=== PATIENT | male | born 1970 | race Caucasian/White ===

== ENCOUNTER 2017-04-22 15:13 | Emergency (ER) | payer MEDICARE, MEDICAID ==
[~2017-04-22] VITALS: Ht 188 cm; Wt 80.9 kg
[~2017-04-22 15:13] MED LIST: BUPR300T53 PO; CLON-527 PO; PRAZ1CAP5 PO; QUET25TA PO; VENL150C2 PO
[2017-04-22] MEDS ORDERED: dexamethasone sod phosphate 10mg/ml inj IM STA (15:48)
[2017-04-22] MEDS ORDERED: HYDROcodone/acetaminophen 10/325mg tab PO ONE (15:50)
[2017-04-22] MEDS ORDERED: ketorolac trometh inj. 60 MG/2 ML VIAL IM ONE (15:50)
[2017-04-22] MEDS ORDERED: diazepam 5mg tablet PO ONE (15:50)
[2017-04-22] MEDS ORDERED: morphine 5 MG/ML injection IM ONE (16:15)
[2017-04-22] MEDS ORDERED: ondansetron 4mg rapidly disintigrating tab PO ONE (16:50)
[2017-04-22] MEDS ORDERED: CYCL-1 PO (17:13)
== END 2017-04-22 17:18 | disposition home or self-care (01) ==
LOC: ER 15:14
DX: M48.061 Spinal stenosis, lumbar region without neurogenic claudication (principal); M62.830 Muscle spasm of back; G89.29 Other chronic pain; Z79.899 Other long term (current) drug therapy
CPT/HCPCS: 72100; 96372; 99284; J1100; J1885

== ENCOUNTER 2017-10-17 23:19 | Emergency (ER) | payer MEDICARE, MEDICAID ==
[~2017-10-17] VITALS: Ht 188 cm; Wt 78.8 kg
[~2017-10-17 23:19] MED LIST changes: +CYCL-1 PO
[2017-10-18 00:05] VITALS: BP 125/71
[2017-10-18] MEDS ORDERED: sulfamethoxazole/trimethoprim DS (800/160mg) tablet PO ONE (01:10)
== END 2017-10-18 01:19 | disposition home or self-care (01) ==
LOC: ER 23:19
DX: S61.210A Laceration without foreign body of right index finger without damage to nail, initial encounter (principal); G89.29 Other chronic pain; Z86.19 Personal history of other infectious and parasitic diseases; Z79.899 Other long term (current) drug therapy; W25.XXXA Contact with sharp glass, initial encounter; Y93.89 Activity, other specified; Y92.89 Other specified places as the place of occurrence of the external cause; Y99.8 Other external cause status
CPT/HCPCS: 12002; 99283

== ENCOUNTER 2017-10-30 17:45 | Emergency (ER) | payer MEDICARE, MEDICAID ==
[~2017-10-30] VITALS: Ht 188 cm; Wt 79.5 kg
[2017-10-30] MEDS ORDERED: ketorolac trometh inj. 60 MG/2 ML VIAL IM ONE (18:55)
[2017-10-30 19:12] VITALS: BP 112/87
== END 2017-10-30 19:13 | disposition home or self-care (01) ==
LOC: ER 17:45
DX: S61.210D Laceration without foreign body of right index finger without damage to nail, subsequent encounter (principal); M54.9 Dorsalgia, unspecified; Z79.899 Other long term (current) drug therapy; X58.XXXD Exposure to other specified factors, subsequent encounter
CPT/HCPCS: 96372; 99283; A6222; A6255; A6449; J1885

== ENCOUNTER 2017-12-02 20:58 | Emergency (ER) | payer MEDICARE, MEDICAID ==
[~2017-12-02] VITALS: Ht 188 cm; Wt 73.8 kg
[2017-12-02] MEDS ORDERED: DOXY100C43 PO (22:19)
[2017-12-02] MEDS ORDERED: ketorolac tromethamine 15mg/ml inj. IM ONE (22:25)
[2017-12-02 23:23] VITALS: BP 135/67
== END 2017-12-02 23:28 | disposition home or self-care (01) ==
LOC: ER 20:58
DX: M70.22 Olecranon bursitis, left elbow (principal); F12.90 Cannabis use, unspecified, uncomplicated; Z79.899 Other long term (current) drug therapy; Y93.89 Activity, other specified
CPT/HCPCS: 73080; 96372; 99284; J1885

== ENCOUNTER 2018-05-24 20:41 | Emergency (ER) | payer MEDICARE, MEDICAID ==
[~2018-05-24] VITALS: Ht 188 cm; Wt 64.4 kg
[2018-05-24 20:50] VITALS: BP 101/74
[2018-05-24] MEDS ORDERED: LIDOcaine 1% w/epiNEPHrine 1:200,000 30ml vial IM ONE (21:55)
[2018-05-24] MEDS ORDERED: sulfamethoxazole/trimethoprim DS (800/160mg) tablet PO ONE (21:55)
[2018-05-24] MEDS ORDERED: bacitracin 15gm ointment TP ONE (21:55)
--- NOTE | 2018-05-24 22:00 | NUR ---
DURING ABCESS DRAINAGE BY MD PATIENT WAS SCREAMING AND KICKING: HELD HIS HAND/ ARM AND REASSURED HIM PATIENT WOULD NOT ALLOW FULL DRAINAGE OF ABCESSES: WHITE MATERIAL OUT
[2018-05-24] MEDS ORDERED: SULF1TAB49 PO (22:30)
== END 2018-05-24 23:33 | disposition home or self-care (01) ==
LOC: ER 20:42
DX: L02.413 Cutaneous abscess of right upper limb (principal); L03.113 Cellulitis of right upper limb; G89.29 Other chronic pain; F12.90 Cannabis use, unspecified, uncomplicated; Z79.899 Other long term (current) drug therapy
CPT/HCPCS: 10061; 99284; J3490

== ENCOUNTER 2018-06-12 05:36 | Emergency (ER) | payer MEDICARE, MEDICAID ==
[~2018-06-12] VITALS: Ht 188 cm; Wt 85.1 kg
[2018-06-12] MEDS ORDERED: HYDR-4353 PO (06:11)
[2018-06-12 08:08] VITALS: BP 126/82
== END 2018-06-12 08:11 | disposition home or self-care (01) ==
LOC: ER 05:37
DX: S09.90XA Unspecified injury of head, initial encounter (principal); R51 Headache; I10 Essential (primary) hypertension; G89.29 Other chronic pain; F17.200 Nicotine dependence, unspecified, uncomplicated; F12.90 Cannabis use, unspecified, uncomplicated; F15.90 Other stimulant use, unspecified, uncomplicated; F11.90 Opioid use, unspecified, uncomplicated; Z79.899 Other long term (current) drug therapy; W22.8XXA Striking against or struck by other objects, initial encounter; Y93.89 Activity, other specified; Y92.89 Other specified places as the place of occurrence of the external cause; Y99.9 Unspecified external cause status
CPT/HCPCS: 70450; 99284

== ENCOUNTER 2018-07-13 19:38 | Emergency (ER) | payer MEDICARE, MEDICAID ==
[~2018-07-13] VITALS: Ht 190.5 cm; Wt 81.8 kg
[2018-07-13 19:42] VITALS: BP 117/80
--- NOTE | 2018-07-13 20:51 | NUR ---
pt in radiology
== END 2018-07-13 21:39 | disposition left against medical advice (07) ==
LOC: ER 19:39
DX: M54.6 Pain in thoracic spine (principal); R07.81 Pleurodynia; I10 Essential (primary) hypertension; G89.29 Other chronic pain; M54.9 Dorsalgia, unspecified; F12.90 Cannabis use, unspecified, uncomplicated; F15.90 Other stimulant use, unspecified, uncomplicated
CPT/HCPCS: 71100; 72070; 99283

== ENCOUNTER 2018-07-19 20:04 | Inpatient (IN) | payer MEDICARE, MEDICAID | END 2018-07-24 13:22 | disposition left against medical advice (07) | LOC: ED HOLD 07-20 02:11 → ER 20:04 → PCU 3S 07-20 08:55 | DX: I30.1 Infective pericarditis (principal); I26.90 Septic pulmonary embolism without acute cor pulmonale; J18.9 Pneumonia, unspecified organism; I76 Septic arterial embolism ==

== ENCOUNTER 2018-07-25 11:25 | Inpatient (IN) | payer MEDICARE, MEDICAID ==
[~2018-07-25] VITALS: Ht 188 cm; Wt 82.0 kg
[~2018-07-25 11:25] MED LIST changes: +ASEN5TAB SL; -CLON-527 PO; -QUET25TA PO
[2018-07-25 12:34] LABS: BASOPHILS # (AUTO) 0.1 X10'3 (0-0.2); BASOPHILS % (AUTO) 0.8 % (0-1); EOSINOPHILS # (AUTO) 0.7 X10'3 (0-0.9); EOSINOPHILS % (AUTO) 5.6 % (0-6); HEMATOCRIT 33.1 % (42.0-52.0); HEMOGLOBIN 10.9 g/dl (14.0-17.9); LYMPHOCYTES # (AUTO) 1.4 X10'3 (1.1-4.8); LYMPHOCYTES % (AUTO) 11.6 % (21-51); MEAN CORPUSCULAR HEMOGLOBIN 29.1 PG (27.0-31.0); MEAN CORPUSCULAR HGB CONC 32.9 g/dL (33.0-36.5); MEAN CORPUSCULAR VOLUME 88.5 FL (78-98); MEAN PLATELET VOLUME 6.4 FL (7.4-10.4); MONOCYTES # (AUTO) 1.2 X10'3 (0-0.9); MONOCYTES % (AUTO) 9.9 % (2-12); NEUTROPHILS # (AUTO) 8.8 X10'3 (1.8-7.7); NEUTROPHILS % (AUTO) 72.1 % (42-75); PLATELET COUNT 563 X10'3 (140-440); RED BLOOD COUNT 3.74 X10'6 (4.70-6.10); RED CELL DISTRIBUTION WIDTH 14.9 % (11.5-14.5); WHITE BLOOD COUNT 12.2 X10'3 (4.5-11.0)
[2018-07-25 12:48] LABS: INR 1.1 INR; PARTIAL THROMBOPLASTIN TIME 29 SECONDS (22-32)
[2018-07-25 12:58] LABS: ALANINE AMINOTRANSFERASE 39 U/L (12-78); ALBUMIN 2.1 G/DL (3.4-5.0); ALBUMIN/GLOBULIN RATIO 0.4 (1.1-1.5); ALKALINE PHOSPHATASE 349 IU/L (46-116); ANION GAP 6 (8-16); ASPARTATE AMINO TRANSFERASE 26 U/L (10-37); BILIRUBIN,TOTAL 0.2 MG/DL (0.1-1.0); BLOOD UREA NITROGEN 12 MG/DL (7-18); BUN/CREATININE RATIO 9.5 (5.4-32.0); CALCIUM 8.7 MG/DL (8.5-10.1); CHLORIDE 101 MMOL/L (99-107); CREATININE 1.26 MG/DL (0.60-1.10); GLUCOSE 178 MG/DL (70-104); POTASSIUM 4.2 MMOL/L (3.5-5.1); SODIUM 134 MMOL/L (135-145); TOTAL PROTEIN 7.4 G/DL (6.4-8.2); eGFR 62 ML/MIN
[2018-07-25] MEDS ORDERED: cefepime 2g/NS 100ml ADVANTAGE 100 ML IV ONE (13:54)
[2018-07-25] MEDS ORDERED: vancomycin/NS 1 GM ADD-VANTAGE 250 ML X 1 DOSE IV ONE (14:00)
--- NOTE | 2018-07-25 14:01 | NUR ---
Spoke with Jeanette PINZON regarding need for fluid administration for sepsis due to LA 2.1 and potential need for another set of blood cultures. ALBERTA stated that patient was not considered septic and did not need fluids per protocol, but to administer 1 L NS bolus. Jeanette PINZON stated that she would place order. Jeantete PINZON also stated that he could not need another set of blood cultures due to patient having being seen yesterday and gotten a set prior to first dose abx administration.
[2018-07-25] MEDS ORDERED: normal saline 1000ml 1,000 ML IVB ONE (14:18)
[2018-07-25] MEDS ORDERED: CYCL5TAB79 PO (14:28)
[2018-07-25 14:37] LABS: URINE AMPHETAMINE SCREEN NEGATIVE (Neg); URINE BARBITUATE SCREEN NEGATIVE (Neg); URINE BENZODIAZEPINES SCREEN NEGATIVE (Neg); URINE CANNABINOID SCREEN POSITIVE (Neg); URINE COCAINE SCREEN NEGATIVE (Neg); URINE METHADONE SCREEN NEGATIVE (Neg); URINE OPIATE SCREEN POSITIVE (Neg); URINE PHENCYCLIDINE SCREEN NEGATIVE (Neg)
[2018-07-25] MEDS ORDERED: potassium Cl 40MEQ/NS 500ml 500 ML IV PRN ×2 (15:10)
[2018-07-25] MEDS ORDERED: magnesium 4gm in 100ml NS 100 ML IV PRN (15:10)
[2018-07-25] MEDS ORDERED: magnesium 2GM in 50ml NS 50 ML IV PRN (15:10)
[2018-07-25] MEDS ORDERED: magnesium Cl slow-release 64mg tablet PO PRN (15:10)
[2018-07-25] MEDS ORDERED: acetaminophen 325mg tablet PO PRN ×2 (15:10)
[2018-07-25] MEDS ORDERED: ipratropium/albuterol 3ml nebule NEB PRN (15:10)
[2018-07-25] MEDS ORDERED: mag hydrox/Alum hydrox/simeth 30ml oral suspension PO PRN (15:10)
[2018-07-25] MEDS ORDERED: ondansetron/PF 4mg/2ml inj IV PRN (15:10)
[2018-07-25] MEDS ORDERED: potassium Cl 20 mEq SR tablet PO PRN ×2 (15:10)
[2018-07-25] MEDS ORDERED: ACET-812 PO (15:31)
[2018-07-25] MEDS ORDERED: cefepime 1GM/NS ADD-VANTAGE 100 ML IV SCH (16:00)
[2018-07-25] MEDS ORDERED: vancomycin inj 500 MG in normal saline 100ml IV soln 100 ML IV ONE (16:00)
[2018-07-25] MEDS: HYDROcodone/acetaminophen 5mg/325mg tablet PO PRN ×2 (17:13→22:25)
[2018-07-25] MEDS: docusate sod 100mg capsule PO SCH (18:36)
[2018-07-25] MEDS ORDERED: cyclobenzaprine 10mg tablet PO PRN (18:40)
--- NOTE | 2018-07-25 18:49 | NUR ---
MEAL TRAY DELIVERED, FOOD ALSO PROVIDED TO SPOUSE.
--- NOTE | 2018-07-25 19:18 | NUR ---
NURSE UNAVAIL TO TAKE REPORT
--- NOTE | 2018-07-25 19:30 | NUR ---
ROOM NOT CLEAN, WILL CALL WHEN READY.
[2018-07-25] MEDS: methylPREDNISolone sod succ/PF 40mg inj. IV SCH (19:33)
[2018-07-25] MEDS: buPROPion SR 150mg tablet PO SCH (19:33)
[2018-07-25] MEDS ORDERED: vancomycin/NS 1 GM ADD-VANTAGE 250 ML IV SCH (20:00)
--- NOTE | 2018-07-25 20:04 | NUR ---
Patient in room . I have received report from Dylan Corona and had the opportunity to ask questions and assume patient care.
--- NOTE | 2018-07-25 20:05 | NUR ---
RT PAGED FOR SCHEDULED BREATHING TX.
[2018-07-25] MEDS: ipratropium/albuterol 3ml nebule NEB SCH (20:50)
--- NOTE | 2018-07-25 20:51 | NUR ---
RT AT BEDSIDE FOR TREATMENT.
--- NOTE | 2018-07-25 20:52 | NUR ---
ATTEMPTED TO CALL SURGICAL REGARDING ROOM STATUS, NO ANWERANNEMARIE CALLED AND WILL INVESTIGATE. PT BECOMING UPSET ABOUT THE WAIT.
[2018-07-25] MEDS ORDERED: prazosin 1mg capsule PO SCH (21:00)
[2018-07-25 21:25] VITALS: BP 104/57
[2018-07-25] MEDS: cefepime 1GM/NS ADD-VANTAGE 100 ML IV SCH (23:15)
[2018-07-26] VITALS: BP 107/68
[2018-07-26] MEDS ORDERED: ASENAPINE PO SCH ×3 (00:15→21:00)
[2018-07-26] MEDS ORDERED: ASENAPINE PO ONE (00:45)
[2018-07-26] MEDS: ipratropium/albuterol 3ml nebule NEB SCH ×3 (03:10→14:52)
[2018-07-26] MEDS ORDERED: vancomycin inj 1,250 MG in NS 250ml IV soln IV SCH ×2 (04:00→12:00)
[2018-07-26 05:38] LABS: BASOPHILS % (AUTO) 0.3 % (0-1); EOSINOPHILS % (AUTO) 0.2 % (0-6); HEMATOCRIT 33.2 % (42.0-52.0); HEMOGLOBIN 10.9 g/dl (14.0-17.9); LYMPHOCYTES # (AUTO) 0.6 X10'3 (1.1-4.8); LYMPHOCYTES % (AUTO) 4.9 % (21-51); MEAN CORPUSCULAR HGB CONC 32.7 g/dL (33.0-36.5); MEAN CORPUSCULAR VOLUME 88.7 FL (78-98); MEAN PLATELET VOLUME 6.6 FL (7.4-10.4); MONOCYTES # (AUTO) 0.6 X10'3 (0-0.9); NEUTROPHILS # (AUTO) 11.4 X10'3 (1.8-7.7); NEUTROPHILS % (AUTO) 89.6 % (42-75); PLATELET COUNT 551 X10'3 (140-440); RED BLOOD COUNT 3.74 X10'6 (4.70-6.10); RED CELL DISTRIBUTION WIDTH 14.4 % (11.5-14.5); WHITE BLOOD COUNT 12.8 X10'3 (4.5-11.0)
[2018-07-26 05:39] LABS: ANION GAP 4 (8-16); BLOOD UREA NITROGEN 15 MG/DL (7-18); BUN/CREATININE RATIO 12.6 (5.4-32.0); CALCIUM 8.7 MG/DL (8.5-10.1); CHLORIDE 104 MMOL/L (99-107); CREATININE 1.19 MG/DL (0.60-1.10); GLUCOSE 220 MG/DL (70-104); MAGNESIUM 2.6 MG/DL (1.5-2.4); SODIUM 136 MMOL/L (135-145); TOTAL CARBON DIOXIDE 28.3 MMOL/L (24-32); eGFR 66 ML/MIN
--- NOTE | 2018-07-26 06:15 | NUR ---
Patient in room [facility] 340. I have received report from Claudio BUCK and had the opportunity to ask questions and assume patient care.
--- NOTE | 2018-07-26 06:47 | NUR ---
Problems reprioritized. Patient report given, questions answered & plan of care reviewed with HEBER Walker.
[2018-07-26 07:58] VITALS: BP 100/49
[2018-07-26] MEDS ORDERED: K and/or MAG REPLACEMENT MC SCH (08:00)
[2018-07-26] MEDS ORDERED: venlafaxine XR 75mg capsule (Q24H) PO SCH (08:00)
[2018-07-26] MEDS ORDERED: SAPHRIS 5 MG PO SCH (08:00)
[2018-07-26] MEDS: buPROPion SR 150mg tablet PO SCH (08:56)
[2018-07-26] MEDS: docusate sod 100mg capsule PO SCH (08:56)
[2018-07-26] MEDS: cefepime 1GM/NS ADD-VANTAGE 100 ML IV SCH ×2 (08:56→15:20)
[2018-07-26] MEDS: methylPREDNISolone sod succ/PF 40mg inj. IV SCH (08:57)
[2018-07-26 11:43] VITALS: BP 107/60
[2018-07-26] MEDS ORDERED: LEVO750T21 PO (15:10)
[2018-07-26] MEDS ORDERED: IPRA3AMP31 IH (15:11)
[2018-07-26] MEDS ORDERED: COMP1EAC88 (15:12)
--- NOTE | 2018-07-26 16:29 | NUR ---
Patient discharged with all belongings. to take pt home. IV taken out. Rx called in to [facility] in [place]. Home meds given back to pt from pharmacy. W/C to front lobby.
[2018-07-26] MEDS ORDERED: lactobacillus rhamnosus 10,000 MMU CELLS/CAPSULE PO SCH (20:00)
[2018-07-27] MEDS ORDERED: VANCOMYCIN LEVEL IV ONE (03:30)
== END 2018-07-26 16:26 | disposition home or self-care (01) | DRG 190 ==
LOC: ER 11:25 → SUR 3N 15:14
PROVIDERS: ADMIT Internal Medicine; ATTEND Internal Medicine
DX: J44.0 Chronic obstructive pulmonary disease with (acute) lower respiratory infection (principal); J18.1 Lobar pneumonia, unspecified organism; J91.8 Pleural effusion in other conditions classified elsewhere; J44.1 Chronic obstructive pulmonary disease with (acute) exacerbation; B18.2 Chronic viral hepatitis C; F31.9 Bipolar disorder, unspecified; F43.10 Post-traumatic stress disorder, unspecified; I10 Essential (primary) hypertension; F17.210 Nicotine dependence, cigarettes, uncomplicated; F12.10 Cannabis abuse, uncomplicated; G89.29 Other chronic pain; M54.9 Dorsalgia, unspecified; Z79.899 Other long term (current) drug therapy; Z87.01 Personal history of pneumonia (recurrent)
CPT/HCPCS: 36415; 71046; 80048; 80053; 80305; 83605; 83735; 85025; 85610; 85730; 87070; 94640; 94667; 94760; 96365; 99285; G0378; J0692; J2920; J3370; J7030

== ENCOUNTER 2018-10-31 08:03 | Day surgery (SDC) | payer MEDICARE, MEDICAID ==
[~2018-10-31] VITALS: Ht 188 cm; Wt 76.5 kg
[~2018-10-31 08:03] MED LIST changes: +ACET-812 PO; +COMP1EAC88; -CYCL-1 PO; +CYCL5TAB79 PO; +IPRA3AMP31 IH
[2018-10-31] MEDS ORDERED: normal saline 1000ml 1,000 ML IV PRN (08:35)
[2018-10-31 08:45] VITALS: BP 136/91
[2018-10-31] MEDS ORDERED: fentaNYL/PF 50MCG/1 ML 2ML syringe IV PRN (09:20)
[2018-10-31] MEDS ORDERED: heparin 1,000 units/ml 10ml inj ICATH ONE (09:20)
[2018-10-31] MEDS ORDERED: LIDOcaine 1%/PF 5ML 10 MG/ML VIAL SQ ONE (09:20)
[2018-10-31] MEDS ORDERED: midazolam 2 mg/2 ml injection IV PRN (09:20)
[2018-10-31 09:23] LABS: BASOPHILS # (AUTO) 0.2 X10'3 (0-0.2); BASOPHILS % (AUTO) 1.3 % (0-1); EOSINOPHILS # (AUTO) 0.3 X10'3 (0-0.9); EOSINOPHILS % (AUTO) 2.3 % (0-6); HEMATOCRIT 24.3 % (42.0-52.0); HEMOGLOBIN 7.8 g/dl (14.0-17.9); LYMPHOCYTES # (AUTO) 2.5 X10'3 (1.1-4.8); LYMPHOCYTES % (AUTO) 17.2 % (21-51); MEAN CORPUSCULAR HEMOGLOBIN 29.7 PG (27.0-31.0); MEAN CORPUSCULAR HGB CONC 32.1 g/dL (33.0-36.5); MEAN CORPUSCULAR VOLUME 92.5 FL (78-98); MEAN PLATELET VOLUME 6.9 FL (7.4-10.4); MONOCYTES % (AUTO) 7.3 % (2-12); NEUTROPHILS # (AUTO) 10.3 X10'3 (1.8-7.7); NEUTROPHILS % (AUTO) 71.9 % (42-75); PLATELET COUNT 282 X10'3 (140-440); RED BLOOD COUNT 2.63 X10'6 (4.70-6.10); RED CELL DISTRIBUTION WIDTH 18.4 % (11.5-14.5); WHITE BLOOD COUNT 14.3 X10'3 (4.5-11.0)
[2018-10-31] MEDS ORDERED: LIDOcaine 1%/PF 5ML 10 MG/ML VIAL ONE (09:32)
[2018-10-31] MEDS ORDERED: heparin 1,000unit/ml 10ml vial 10 ML ONE (09:32)
[2018-10-31 09:33] LABS: ALBUMIN 3.2 G/DL (3.4-5.0); ANION GAP 13 (8-16); BLOOD UREA NITROGEN 55 MG/DL (7-18); CALCIUM 8.3 MG/DL (8.5-10.1); CHLORIDE 104 MMOL/L (99-107); GLUCOSE 83 MG/DL (70-104); POTASSIUM 5.8 MMOL/L (3.5-5.1); SODIUM 139 MMOL/L (135-145); TOTAL CARBON DIOXIDE 22.3 MMOL/L (24-32)
[2018-10-31] MEDS ORDERED: fentaNYL/PF 50MCG/1 ML 2ML syringe ONE ×2 (09:33→09:52)
[2018-10-31] MEDS ORDERED: midazolam 2 mg/2 ml injection ONE (09:33)
[2018-10-31] MEDS ORDERED: AMLO-314 PO (09:44)
[2018-10-31] MEDS ORDERED: ACET-1017 PO (09:44)
[2018-10-31] MEDS ORDERED: SEVE800T8 PO (09:44)
[2018-10-31] MEDS ORDERED: PHO667C PO (09:44)
[2018-10-31] MEDS ORDERED: FOLI0.8T7 PO (09:44)
[2018-10-31 09:45] LABS: CREATININE 12.01 MG/DL (0.60-1.10); eGFR 5 ML/MIN
[2018-10-31 09:46] LABS: BUN/CREATININE RATIO 4.6 (5.4-32.0)
[2018-10-31 10:19] VITALS: BP 137/98
[2018-10-31 10:36] VITALS: BP 157/98
[2018-10-31 10:51] VITALS: BP 177/102
[2018-10-31 11:06] VITALS: BP 172/109
[2018-10-31 11:21] VITALS: BP 164/100
== END 2018-10-31 11:25 | disposition home or self-care (01) ==
LOC: SSTAY O 08:03
PROVIDERS: ATTEND Radiology Diagnostic Radiology
DX: I12.0 Hypertensive chronic kidney disease with stage 5 chronic kidney disease or end stage renal disease (principal); N18.6 End stage renal disease; B18.2 Chronic viral hepatitis C; J44.9 Chronic obstructive pulmonary disease, unspecified; F31.9 Bipolar disorder, unspecified; Z87.01 Personal history of pneumonia (recurrent); F43.10 Post-traumatic stress disorder, unspecified; Z79.899 Other long term (current) drug therapy
CPT/HCPCS: 36415; 36558; 76937; 77001; 80048; 85025; 85610; 99152; 99153; C1750; C1894; J1644; J2250; J3010; J7030; A9270

== ENCOUNTER 2019-03-08 17:15 | Inpatient (IN) | payer MEDICARE, MEDICAID ==
[~2019-03-08] VITALS: Ht 190.5 cm; Wt 72.5 kg
[~2019-03-08 17:15] MED LIST changes: +ACET-1017 PO; -ACET-812 PO; +AMLO-314 PO; -COMP1EAC88; +FOLI0.8T7 PO; +PHO667C PO; +SEVE800T8 PO
[2019-03-08] MEDS ORDERED: CefTRIAXone 2gm/D5W 50ml 50 ML IV ONE (17:40)
[2019-03-08] MEDS ORDERED: ondansetron/PF 4mg/2ml inj IV ONE ×2 (17:40→19:20)
[2019-03-08 17:59] LABS: CLARITY,URINE CLEAR (Clear); COLOR,URINE YELLOW (Yellow); GLUCOSE, URINE NEGATIVE (Neg); KETONES,URINE NEGATIVE (Neg); LEUKOCYTE ESTERASE ,URINE NEGATIVE (Neg); NITRITES, URINE NEGATIVE (Neg); OCCULT BLOOD,URINE LARGE (Neg); PROTEIN,URINE 100 mg/dl (Neg); UROBILINOGEN,URINE 0.2 E.U/dL (0.2-1.0)
[2019-03-08 18:04] LABS: UA COLLECTION TYPE CLN CATCH MIDSTREAM
[2019-03-08 18:05] LABS: AMORPHOUS URATES 1+; BACTERIA,URINE FEW /HPF (Neg); COARSE GRANULAR CAST 0-3 /LPF (NEGATIVE); MUCUS STRANDS FEW /LPF (Neg); RBC,URINE 0-2 /HPF (0-2); SQUAMOUS EPITHELIAL CELL,UR FEW /LPF (FEW); WBC,URINE 0-4 /HPF (0-4)
[2019-03-08 18:11] LABS: BASOPHILS # (AUTO) 0.1 X10'3 (0-0.2); BASOPHILS % (AUTO) 0.3 % (0-1); EOSINOPHILS % (AUTO) 0.1 % (0-6); HEMATOCRIT 34.2 % (42.0-52.0); HEMOGLOBIN 11.6 g/dl (14.0-17.9); LYMPHOCYTES # (AUTO) 0.7 X10'3 (1.1-4.8); LYMPHOCYTES % (AUTO) 3.8 % (21-51); MEAN CORPUSCULAR HEMOGLOBIN 31.4 PG (27.0-31.0); MEAN CORPUSCULAR HGB CONC 33.9 g/dL (33.0-36.5); MEAN CORPUSCULAR VOLUME 92.4 FL (78-98); MEAN PLATELET VOLUME 7.5 FL (7.4-10.4); MONOCYTES # (AUTO) 0.9 X10'3 (0-0.9); MONOCYTES % (AUTO) 4.5 % (2-12); NEUTROPHILS # (AUTO) 17.8 X10'3 (1.8-7.7); NEUTROPHILS % (AUTO) 91.3 % (42-75); PLATELET COUNT 170 X10'3 (140-440); RED CELL DISTRIBUTION WIDTH 13.6 % (11.5-14.5); WHITE BLOOD COUNT 19.5 X10'3 (4.5-11.0)
[2019-03-08 18:14] LABS: PARTIAL THROMBOPLASTIN TIME 34 SECONDS (22-32)
[2019-03-08 18:16] LABS: ALANINE AMINOTRANSFERASE 35 U/L (12-78); ALBUMIN 3.4 G/DL (3.4-5.0); ALBUMIN/GLOBULIN RATIO 0.8 (1.1-1.5); ALKALINE PHOSPHATASE 82 IU/L (46-116); ANION GAP 20 (8-16); ASPARTATE AMINO TRANSFERASE 39 U/L (10-37); BILIRUBIN,TOTAL 0.5 MG/DL (0.1-1.0); BLOOD UREA NITROGEN 68 MG/DL (7-18); BUN/CREATININE RATIO 7.1 (5.4-32.0); CALCIUM 8.9 MG/DL (8.5-10.1); CHLORIDE 95 MMOL/L (99-107); CREATININE 9.57 MG/DL (0.60-1.10); GLUCOSE 127 MG/DL (70-104); POTASSIUM 4.6 MMOL/L (3.5-5.1); SODIUM 132 MMOL/L (135-145); TOTAL CARBON DIOXIDE 16.6 MMOL/L (24-32); TOTAL PROTEIN 7.8 G/DL (6.4-8.2); eGFR 6 ML/MIN
[2019-03-08 18:24] LABS: TROPONIN I < 0.04 NG/ML (0.0-0.05)
[2019-03-08] MEDS ORDERED: morphine 4 MG/ML inj SYRINge IV ONE (19:20)
[2019-03-08] MEDS ORDERED: PANT-47 PO (19:32)
[2019-03-08] MEDS ORDERED: TIZA2TAB5 PO (19:32)
[2019-03-08] MEDS ORDERED: ondansetron/PF 4mg/2ml inj IV PRN (20:30)
[2019-03-08] MEDS ORDERED: vancomycin/NS 1 GM ADD-VANTAGE 250 ML IV ONE (20:30)
[2019-03-08] MEDS ORDERED: acetaminophen 650mg rectal suppository RC PRN (20:30)
[2019-03-08] MEDS ORDERED: acetaminophen 325mg tablet PO PRN ×2 (20:30)
[2019-03-08 21:45] VITALS: BP 114/68
[2019-03-08] MEDS: piperacillin/tazo 3.375gm/50ml 50 ML IV SCH (23:58)
--- NOTE | 2019-03-09 06:23 | NUR ---
Patient in room [facility] 360. I have received report from HEBER WATTS and had the opportunity to ask questions and assume patient care.
[2019-03-09 06:25] LABS: BASOPHILS % (AUTO) 0.2 % (0-1); EOSINOPHILS % (AUTO) 0.4 % (0-6); HEMATOCRIT 34.2 % (42.0-52.0); HEMOGLOBIN 11.5 g/dl (14.0-17.9); LYMPHOCYTES # (AUTO) 0.8 X10'3 (1.1-4.8); LYMPHOCYTES % (AUTO) 6.2 % (21-51); MEAN CORPUSCULAR HEMOGLOBIN 31.5 PG (27.0-31.0); MEAN CORPUSCULAR HGB CONC 33.7 g/dL (33.0-36.5); MEAN CORPUSCULAR VOLUME 93.5 FL (78-98); MEAN PLATELET VOLUME 8.1 FL (7.4-10.4); MONOCYTES # (AUTO) 1.2 X10'3 (0-0.9); MONOCYTES % (AUTO) 8.8 % (2-12); NEUTROPHILS # (AUTO) 11.1 X10'3 (1.8-7.7); NEUTROPHILS % (AUTO) 84.4 % (42-75); PLATELET COUNT 152 X10'3 (140-440); RED BLOOD COUNT 3.66 X10'6 (4.70-6.10); RED CELL DISTRIBUTION WIDTH 13.7 % (11.5-14.5); WHITE BLOOD COUNT 13.1 X10'3 (4.5-11.0)
--- NOTE | 2019-03-09 06:26 | NUR ---
Verbal report given to Jude BUCK
[2019-03-09 06:40] LABS: ALANINE AMINOTRANSFERASE 108 U/L (12-78); ALBUMIN 2.9 G/DL (3.4-5.0); ALBUMIN/GLOBULIN RATIO 0.7 (1.1-1.5); ALKALINE PHOSPHATASE 144 IU/L (46-116); ANION GAP 14 (8-16); ASPARTATE AMINO TRANSFERASE 164 U/L (10-37); BILIRUBIN,TOTAL 0.3 MG/DL (0.1-1.0); BLOOD UREA NITROGEN 76 MG/DL (7-18); BUN/CREATININE RATIO 7.4 (5.4-32.0); CALCIUM 8.8 MG/DL (8.5-10.1); CHLORIDE 98 MMOL/L (99-107); CREATININE 10.32 MG/DL (0.60-1.10); GLUCOSE 98 MG/DL (70-104); MAGNESIUM 2.3 MG/DL (1.5-2.4); PHOSPHORUS 7.9 MG/DL (2.3-4.5); POTASSIUM 4.7 MMOL/L (3.5-5.1); SODIUM 133 MMOL/L (135-145); TOTAL PROTEIN 7.1 G/DL (6.4-8.2); eGFR 5 ML/MIN
[2019-03-09 07:00] VITALS: BP 124/80
[2019-03-09] MEDS: piperacillin/tazo 3.375gm/50ml 50 ML IV SCH ×3 (07:33→19:54)
[2019-03-09] MEDS ORDERED: IPRA3AMP31 IH (07:37)
[2019-03-09] MEDS ORDERED: pneumococcal 23-VAL P-sac vacc 25 mcg/0.5ml vial IMVAC ONE (10:00)
[2019-03-09] MEDS ORDERED: FLU VACC QS2019-20 36MOS UP/PF 60 MCG/0.5 ML SYRINGE IMVAC ONE (10:00)
[2019-03-09 11:04] VITALS: BP 103/65
[2019-03-09] MEDS: HYDROcodone/acetaminophen 5mg/325mg tablet PO PRN ×3 (11:22→19:55)
[2019-03-09] MEDS ORDERED: vancomycin/NS 1 GM ADD-VANTAGE 250 ML IV PRN (13:15)
[2019-03-09] MEDS ORDERED: vancomycin/NS 1 GM ADD-VANTAGE 250 ML IV ONE (13:15)
--- NOTE | 2019-03-09 18:23 | NUR ---
Problems reprioritized. Patient report given, questions answered & plan of care reviewed with jorge luis baum.
[2019-03-09 18:50] VITALS: BP 114/62
[2019-03-09 19:52] VITALS: BP 114/62
[2019-03-09] MEDS: lactobacillus rhamnosus 10,000 MMU CELLS/CAPSULE PO SCH (19:55)
[2019-03-09] MEDS ORDERED: ipratropium/albuterol 3ml nebule IH PRN (21:35)
[2019-03-09] MEDS: ASENAPINE MALEATE 2.5 MG SL SCH (22:33)
[2019-03-09] MEDS ORDERED: tizanidine 4mg tablet PO PRN (23:20)
[2019-03-10] MEDS: VANCOMYCIN LEVEL IV SCH (03:54)
[2019-03-10 06:09] LABS: EOSINOPHILS # (AUTO) 0.2 X10'3 (0-0.9); EOSINOPHILS % (AUTO) 2.6 % (0-6); HEMOGLOBIN 11.7 g/dl (14.0-17.9); LYMPHOCYTES # (AUTO) 1.2 X10'3 (1.1-4.8); MEAN PLATELET VOLUME 8.1 FL (7.4-10.4); MONOCYTES # (AUTO) 1.2 X10'3 (0-0.9)
[2019-03-10 06:11] LABS: BASOPHILS # (AUTO) 0.1 X10'3 (0-0.2); BASOPHILS % (AUTO) 0.8 % (0-1); HEMATOCRIT 34.1 % (42.0-52.0); LYMPHOCYTES % (AUTO) 14.2 % (21-51); MEAN CORPUSCULAR HEMOGLOBIN 32.1 PG (27.0-31.0); MEAN CORPUSCULAR HGB CONC 34.3 g/dL (33.0-36.5); MEAN CORPUSCULAR VOLUME 93.4 FL (78-98); MONOCYTES % (AUTO) 14.3 % (2-12); NEUTROPHILS # (AUTO) 5.8 X10'3 (1.8-7.7); NEUTROPHILS % (AUTO) 68.1 % (42-75); PLATELET COUNT 156 X10'3 (140-440); RED BLOOD COUNT 3.65 X10'6 (4.70-6.10); RED CELL DISTRIBUTION WIDTH 13.7 % (11.5-14.5); WHITE BLOOD COUNT 8.5 X10'3 (4.5-11.0)
[2019-03-10 06:13] LABS: ALANINE AMINOTRANSFERASE 236 U/L (12-78); ALBUMIN 2.8 G/DL (3.4-5.0); ALBUMIN/GLOBULIN RATIO 0.7 (1.1-1.5); ALKALINE PHOSPHATASE 427 IU/L (46-116); ANION GAP 16 (8-16); ASPARTATE AMINO TRANSFERASE 281 U/L (10-37); BILIRUBIN,TOTAL 0.3 MG/DL (0.1-1.0); BLOOD UREA NITROGEN 79 MG/DL (7-18); BUN/CREATININE RATIO 7.3 (5.4-32.0); CALCIUM 8.7 MG/DL (8.5-10.1); CHLORIDE 100 MMOL/L (99-107); CREATININE 10.84 MG/DL (0.60-1.10); GLUCOSE 90 MG/DL (70-104); MAGNESIUM 2.4 MG/DL (1.5-2.4); PHOSPHORUS 6.5 MG/DL (2.3-4.5); POTASSIUM 4.7 MMOL/L (3.5-5.1); SODIUM 136 MMOL/L (135-145); TOTAL CARBON DIOXIDE 20.4 MMOL/L (24-32); TOTAL PROTEIN 7.1 G/DL (6.4-8.2); VANCOMYCIN,RANDOM 23.6 UG/ML; eGFR 5 ML/MIN
--- NOTE | 2019-03-10 06:36 | NUR ---
Patient in room [facility] 360. I have received report from Clem BUCK and had the opportunity to ask questions and assume patient care.
[2019-03-10 07:00] VITALS: BP 114/70
[2019-03-10] MEDS: piperacillin/tazo 3.375gm/50ml 50 ML IV SCH ×2 (07:36→19:31)
[2019-03-10] MEDS: amLODIPine 5mg tablet PO SCH (07:38)
[2019-03-10] MEDS: pantoprazole 40mg Tablet.DR PO SCH ×2 (07:38→19:31)
[2019-03-10] MEDS: calcium acetate 667mg (PhosLO) capsule PO SCH ×3 (07:38→18:00)
[2019-03-10] MEDS: lactobacillus rhamnosus 10,000 MMU CELLS/CAPSULE PO SCH ×2 (07:39→19:31)
[2019-03-10] MEDS: folic acid/vitamin B complex w/vitamin C 0.8mg tablet PO SCH (07:39)
[2019-03-10] MEDS: sevelamer carbonate 800mg tablet PO SCH ×3 (07:39→21:32)
[2019-03-10] MEDS: venlafaxine XR 75mg capsule (Q24H) PO SCH (07:40)
[2019-03-10] MEDS: buPROPion SR 150mg tablet PO SCH ×2 (07:40→19:31)
[2019-03-10] MEDS ORDERED: heparin 1,000unit/ml 10ml vial 10 ML IV ONE (08:00)
[2019-03-10] MEDS ORDERED: heparin 1,000 units/ml 10ml inj HE ONE ×2 (08:00)
[2019-03-10] MEDS ORDERED: normal saline 1000ml 250 ML IV PRN (08:00)
[2019-03-10] MEDS ORDERED: FLU VACC QS2019-20 36MOS UP/PF 60 MCG/0.5 ML SYRINGE IMVAC ONE (10:15)
[2019-03-10] MEDS ORDERED: pneumococcal 23-VAL P-sac vacc 25 mcg/0.5ml vial IMVAC ONE (10:15)
[2019-03-10 11:00] VITALS: BP 120/79
--- NOTE | 2019-03-10 11:00 | NUR ---
AT 1100 V/S IS CURRENTLY RECEIVIING DIALYSIS CHARTED BP AND HR ONLY. DIALYSIS NURSE IS MONITORING
[2019-03-10] MEDS: HYDROcodone/acetaminophen 5mg/325mg tablet PO PRN (15:28)
--- NOTE | 2019-03-10 18:10 | NUR ---
Patient in room [facility] 360. I have received report from Isabella BUCK and had the opportunity to ask questions and assume patient care.
--- NOTE | 2019-03-10 18:29 | NUR ---
Problems reprioritized. Patient report given, questions answered & plan of care reviewed with Mariano BUCK.
[2019-03-10 20:00] VITALS: BP 113/72
[2019-03-10] MEDS ORDERED: prazosin 1mg capsule PO SCH (21:00)
[2019-03-10] MEDS: ASENAPINE MALEATE 2.5 MG SL SCH (21:32)
[2019-03-11] VITALS: BP 113/69
[2019-03-11] MEDS: VANCOMYCIN LEVEL IV SCH (03:00)
[2019-03-11 05:25] LABS: BASOPHILS # (AUTO) 0.1 X10'3 (0-0.2); EOSINOPHILS # (AUTO) 0.1 X10'3 (0-0.9); EOSINOPHILS % (AUTO) 1.4 % (0-6); HEMOGLOBIN 12.4 g/dl (14.0-17.9); LYMPHOCYTES # (AUTO) 1.2 X10'3 (1.1-4.8); LYMPHOCYTES % (AUTO) 13.4 % (21-51); MEAN CORPUSCULAR HGB CONC 34.5 g/dL (33.0-36.5); MEAN CORPUSCULAR VOLUME 92.6 FL (78-98); MEAN PLATELET VOLUME 7.7 FL (7.4-10.4); MONOCYTES # (AUTO) 1.1 X10'3 (0-0.9); MONOCYTES % (AUTO) 12.8 % (2-12); NEUTROPHILS # (AUTO) 6.4 X10'3 (1.8-7.7); NEUTROPHILS % (AUTO) 71.4 % (42-75); PLATELET COUNT 195 X10'3 (140-440); RED BLOOD COUNT 3.89 X10'6 (4.70-6.10); RED CELL DISTRIBUTION WIDTH 13.8 % (11.5-14.5)
[2019-03-11 05:48] LABS: ALANINE AMINOTRANSFERASE 177 U/L (12-78); ALBUMIN 3.1 G/DL (3.4-5.0); ALBUMIN/GLOBULIN RATIO 0.6 (1.1-1.5); ALKALINE PHOSPHATASE 360 IU/L (46-116); ANION GAP 15 (8-16); ASPARTATE AMINO TRANSFERASE 75 U/L (10-37); BILIRUBIN,TOTAL 0.3 MG/DL (0.1-1.0); BLOOD UREA NITROGEN 51 MG/DL (7-18); BUN/CREATININE RATIO 5.8 (5.4-32.0); CALCIUM 9.2 MG/DL (8.5-10.1); CHLORIDE 99 MMOL/L (99-107); CREATININE 8.73 MG/DL (0.60-1.10); GLUCOSE 185 MG/DL (70-104); MAGNESIUM 2.5 MG/DL (1.5-2.4); PHOSPHORUS 6.7 MG/DL (2.3-4.5); POTASSIUM 4.3 MMOL/L (3.5-5.1); SODIUM 136 MMOL/L (135-145); TOTAL CARBON DIOXIDE 22.5 MMOL/L (24-32); TOTAL PROTEIN 7.9 G/DL (6.4-8.2); VANCOMYCIN,RANDOM 17.2 UG/ML; eGFR 7 ML/MIN
--- NOTE | 2019-03-11 06:10 | NUR ---
Problems reprioritized. Patient report given, questions answered & plan of care reviewed with Elda BUCK.
--- NOTE | 2019-03-11 06:11 | NUR ---
Patient in room [facility] 360. I have received report from HEBER Quintana and had the opportunity to ask questions and assume patient care.
[2019-03-11 07:00] VITALS: BP 124/81
[2019-03-11] MEDS: lactobacillus rhamnosus 10,000 MMU CELLS/CAPSULE PO SCH (09:03)
[2019-03-11] MEDS: piperacillin/tazo 3.375gm/50ml 50 ML IV SCH (09:03)
[2019-03-11] MEDS: sevelamer carbonate 800mg tablet PO SCH ×2 (09:04→14:35)
[2019-03-11] MEDS: folic acid/vitamin B complex w/vitamin C 0.8mg tablet PO SCH (09:04)
[2019-03-11] MEDS: calcium acetate 667mg (PhosLO) capsule PO SCH ×2 (09:04→14:35)
[2019-03-11] MEDS: buPROPion SR 150mg tablet PO SCH (09:04)
[2019-03-11] MEDS: amLODIPine 5mg tablet PO SCH (09:04)
[2019-03-11] MEDS: pantoprazole 40mg Tablet.DR PO SCH (09:04)
[2019-03-11] MEDS: venlafaxine XR 75mg capsule (Q24H) PO SCH (09:04)
[2019-03-11 11:00] VITALS: BP 141/84
[2019-03-11] MEDS: HYDROcodone/acetaminophen 5mg/325mg tablet PO PRN (11:54)
--- NOTE | 2019-03-11 14:48 | NUR ---
Patient is stating that if Dr. Roland doesn't come and discharge him by 1500 then he is leaving AMA. Dr. Roland was called regarding this earlier but have not heard back from him yet. Patient requested his PIV be removed. Patient educated that we do not remove PIVs until patient is leaving due to safety concerns. Patient stated he didn't care and that he wants it out now. PIV removed with cannula intact.
--- NOTE | 2019-03-11 14:58 | NUR ---
Spoke with Dr. Roland and he stated that the patient should not leave AMA due to the danger in having positive blood cultures. Patient may need to have TDC removed because of this. This was discussed with the patient and he became very upset stating he would try and wait for Dr. Roland to come and talk to him but that he is still planning to leave today regardless.
[2019-03-11] MEDS ORDERED: LIDOcaine 1% (10mg/ml) 2ml vial SQ STA (15:10)
[2019-03-11] MEDS ORDERED: vancomycin/NS 1 GM ADD-VANTAGE 250 ML IV STA (15:10)
[2019-03-11] MEDS ORDERED: LIDOcaine 1%/PF 5ML 10 MG/ML VIAL SQ STA (15:41)
--- NOTE | 2019-03-11 16:00 | NUR ---
Patient decided to stay for another dose of Vanco ordered by Dr. Roland and the TDC removed by Dr. Bloom.
--- NOTE | 2019-03-11 17:27 | NUR ---
Patient discharged home via family and left the unit via ambulation and refused to wait for a staff member to walk down with him. PIV removed with cannula intact. Patient was given discharge instructions with time for question and answers. Patient and family stated understanding. Home medications were retrieved from pharm and given to patient to take home. TDC removal site bleeding was well controlled. Patient was encouraged to follow up with [facility] on Saturday and have them draw repeat blood cultures. Patient stated an understanding of this. patient was alert, oriented and in no apparent distress at time of discharge. All belongings left with patient.
== END 2019-03-11 17:25 | disposition home or self-care (01) | DRG 314 ==
LOC: ER 17:16 → ED HOLD 20:39 → SUR 3N 21:34
PROVIDERS: ADMIT Internal Medicine Critical Care Medicine; ATTEND Internal Medicine Critical Care Medicine
PROC: 5A1D70Z Performance of Urinary Filtration, Intermittent, Less than 6 Hours Per Day (ICD-10-PCS; principal; 2019-03-10)
PROC: 3E0234Z Introduction of Serum, Toxoid and Vaccine into Muscle, Percutaneous Approach (ICD-10-PCS; 2019-03-10)
PROC: 3E02340 Introduction of Influenza Vaccine into Muscle, Percutaneous Approach (ICD-10-PCS; 2019-03-10)
PROC: 05PYX3Z Removal of Infusion Device from Upper Vein, External Approach (ICD-10-PCS; 2019-03-11)
DX: T80.211A Bloodstream infection due to central venous catheter, initial encounter (principal); A41.9 Sepsis, unspecified organism; N18.6 End stage renal disease; I12.0 Hypertensive chronic kidney disease with stage 5 chronic kidney disease or end stage renal disease; Z99.2 Dependence on renal dialysis; I77.6 Arteritis, unspecified; F17.200 Nicotine dependence, unspecified, uncomplicated; Z87.01 Personal history of pneumonia (recurrent); F12.90 Cannabis use, unspecified, uncomplicated; G89.29 Other chronic pain; M54.9 Dorsalgia, unspecified; B95.62 Methicillin resistant Staphylococcus aureus infection as the cause of diseases classified elsewhere; B19.20 Unspecified viral hepatitis C without hepatic coma; Y83.8 Other surgical procedures as the cause of abnormal reaction of the patient, or of later complication, without mention of misadventure at the time of the procedure; Y92.89 Other specified places as the place of occurrence of the external cause; Z23 Encounter for immunization
CPT/HCPCS: 36415; 36589; 71045; 80053; 80202; 81001; 83605; 83735; 83880; 84100; 84145; 84484; 85025; 85610; 85730; 87040; 87077; 87081; 87186; 87502; 87503; 90732; 93005; 93306; 94760; 96365; 96375; 96376; 99285; G0257; G0378; J0696; J1644; J2270; J2405; J2543; J3370; Q2037

== ENCOUNTER 2019-03-16 11:02 | Day surgery (SDC) | payer MEDICARE, MEDICAID ==
[~2019-03-16] VITALS: Ht 190.5 cm; Wt 80.6 kg
[~2019-03-16 11:02] MED LIST changes: -CYCL5TAB79 PO; +PANT-47 PO; +TIZA2TAB5 PO
[2019-03-16 11:15] VITALS: BP 122/46
[2019-03-16] MEDS ORDERED: normal saline 1000ml 1,000 ML IV SCH (11:40)
[2019-03-16 11:46] LABS: BASOPHILS # (AUTO) 0.1 X10'3 (0-0.2); BASOPHILS % (AUTO) 1.5 % (0-1); EOSINOPHILS # (AUTO) 0.2 X10'3 (0-0.9); EOSINOPHILS % (AUTO) 2.5 % (0-6); HEMATOCRIT 28.8 % (42.0-52.0); HEMOGLOBIN 9.9 g/dl (14.0-17.9); LYMPHOCYTES # (AUTO) 2.1 X10'3 (1.1-4.8); LYMPHOCYTES % (AUTO) 26.8 % (21-51); MEAN CORPUSCULAR HEMOGLOBIN 32.1 PG (27.0-31.0); MEAN CORPUSCULAR HGB CONC 34.2 g/dL (33.0-36.5); MEAN CORPUSCULAR VOLUME 93.7 FL (78-98); MEAN PLATELET VOLUME 6.6 FL (7.4-10.4); MONOCYTES # (AUTO) 0.7 X10'3 (0-0.9); MONOCYTES % (AUTO) 8.7 % (2-12); NEUTROPHILS # (AUTO) 4.7 X10'3 (1.8-7.7); NEUTROPHILS % (AUTO) 60.5 % (42-75); PLATELET COUNT 371 X10'3 (140-440); RED BLOOD COUNT 3.07 X10'6 (4.70-6.10); RED CELL DISTRIBUTION WIDTH 13.5 % (11.5-14.5); WHITE BLOOD COUNT 7.8 X10'3 (4.5-11.0)
[2019-03-16 11:55] LABS: ANION GAP 14 (8-16); BLOOD UREA NITROGEN 95 MG/DL (7-18); BUN/CREATININE RATIO 8.3 (5.4-32.0); CALCIUM 8.3 MG/DL (8.5-10.1); CHLORIDE 104 MMOL/L (99-107); CREATININE 11.48 MG/DL (0.60-1.10); GLUCOSE 103 MG/DL (70-104); POTASSIUM 5.3 MMOL/L (3.5-5.1); SODIUM 140 MMOL/L (135-145); eGFR 5 ML/MIN
[2019-03-16] MEDS ORDERED: midazolam 2 mg/2 ml injection IV PRN (13:15)
[2019-03-16] MEDS ORDERED: LIDOcaine 1%/PF 5ML 10 MG/ML VIAL SQ ONE (13:15)
[2019-03-16] MEDS ORDERED: fentaNYL/PF 50MCG/1 ML 2ML syringe IV PRN (13:15)
[2019-03-16] MEDS ORDERED: midazolam 2 mg/2 ml injection ONE ×2 (13:22→13:45)
[2019-03-16] MEDS ORDERED: fentaNYL/PF 50MCG/1 ML 2ML syringe ONE ×2 (13:22→13:45)
[2019-03-16] MEDS ORDERED: heparin 1,000 units/ml 10ml inj ICATH ONE (13:35)
[2019-03-16] MEDS ORDERED: heparin 1,000unit/ml 10ml vial 10 ML ONE (13:36)
[2019-03-16] MEDS ORDERED: LIDOcaine 1%/PF 5ML 10 MG/ML VIAL ONE (13:36)
[2019-03-16 14:35] VITALS: BP 145/88
[2019-03-16 14:50] VITALS: BP 139/91
[2019-03-16 15:05] VITALS: BP 135/88
--- NOTE | 2019-03-16 15:45 | NUR ---
Pt discharged with new TDC in place, dressing clean dry and intact. Given care instructions for the tdc given prior infections. vss. Discharged ambulatory with Ese driving
== END 2019-03-16 15:50 | disposition home or self-care (01) ==
LOC: SSTAY O 11:02
PROVIDERS: ATTEND Radiology Diagnostic Radiology
DX: N18.6 End stage renal disease (principal); Z98.890 Other specified postprocedural states; Z90.49 Acquired absence of other specified parts of digestive tract; Z79.899 Other long term (current) drug therapy; Z99.2 Dependence on renal dialysis
CPT/HCPCS: 36415; 36558; 76937; 77001; 80048; 85025; 99152; 99153; J1644; J2250; J3010; A9270; C1750; C1769; C1894

== ENCOUNTER 2019-05-12 19:15 | Emergency (ER) | payer MEDICARE, MEDICAID ==
[~2019-05-12] VITALS: Ht 218.4 cm; Wt 80.0 kg
[2019-05-12 19:25] VITALS: BP 165/78
== END 2019-05-12 21:02 | disposition home or self-care (01) ==
LOC: ER 19:15
DX: S90.31XA Contusion of right foot, initial encounter (principal); G89.29 Other chronic pain; I12.9 Hypertensive chronic kidney disease with stage 1 through stage 4 chronic kidney disease, or unspecified chronic kidney disease; N18.9 Chronic kidney disease, unspecified; F17.200 Nicotine dependence, unspecified, uncomplicated; F12.90 Cannabis use, unspecified, uncomplicated; Z99.2 Dependence on renal dialysis; Z86.19 Personal history of other infectious and parasitic diseases; Z79.899 Other long term (current) drug therapy; W22.8XXA Striking against or struck by other objects, initial encounter; Y93.89 Activity, other specified; Y92.89 Other specified places as the place of occurrence of the external cause; Y99.9 Unspecified external cause status
CPT/HCPCS: 73630; 99283